=== PATIENT | male | born 1980 | race Caucasian/White ===

== ENCOUNTER 2017-04-21 17:52 | Emergency (ER) | payer OTHER ==
[2017-04-21 18:09] VITALS: RESP 18
[2017-04-21 18:12] VITALS: BMI 36.6
[2017-04-21 18:51] LABS: RBC URINE < 1 /hpf (0-3); TRANSITIONAL EPITHIAL < 1 /hpf (0-3); URINE BACTERIA RARE (<OCC); URINE BILIRUBIN NEGATIVE (NEGATIVE); URINE BLOOD NEGATIVE (NEGATIVE); URINE COLOR Yellow (YELLOW); URINE GLUCOSE (UA) NORMAL (Normal); URINE KETONE NEGATIVE (NEGATIVE); URINE LEUKOCYTE ESTERASE NEG Leu/uL (Negative); URINE PROTEIN NEGATIVE (NEGATIVE); WBC URINE 1 /hpf (0-5)
[2017-04-21] MEDS ORDERED: Sodium Chloride 0.9% 1,000 ML IV ONE (19:33)
--- NOTE | 2017-04-21 19:33 | C.PDOC ---
History Of Present Illness 36 y/o male presents to the ED for evaluation of sore throat and fever which began around 2 days ago. Patient reports TM of 101 and generalized malaise. Denies sick contacts. SORE THROAT, FEVER X 2 DAYS. TM 101. GEN MALAISE. NO SICK CONTACTS EXAM MILD DIST NONTOXIC HEENT +PHARYNGITIS W EXUDATE, MIN SWELLING UVULA MIDLINE VOICE WNL REMAINDER NEG Time Seen by Provider: 04/21/17 18:08 Chief Complaint (Nursing): Fever History Per: Patient History/Exam Limitations: no limitations Onset/Duration Of Symptoms: Days (2) Current Symptoms Are (Timing): Still Present Sick Contacts (Context): None Associated Symptoms: Fever, Sore Throat Ear Symptoms: Bilateral: None Additional History Per: Patient Past Medical History Reviewed: Historical Data, Nursing Documentation, Vital Signs Vital Signs: Last Vital Signs Temp 99.3 F 04/21/17 18:08 Pulse 111 H 04/21/17 18:08 Resp 18 04/21/17 18:08 BP 162/100 H 04/21/17 18:08 Pulse Ox 97 04/21/17 20:34 - Medical History PMH: HTN, Hyperthyroidism, Hypothyroidism, Seizures (last seizure 1 yr ago) Surgical History: No Surg Hx Family History: States: Unknown Family Hx - Social History Hx Tobacco Use: Yes (smoke cessation counseling provided) Hx Alcohol Use: Yes Hx Substance Use: Yes (marijuana) - Immunization History Hx Tetanus Toxoid Vaccination: No Hx Influenza Vaccination: No Hx Pneumococcal Vaccination: No Review Of Systems Constitutional: Positive for: Fever, Malaise (generalized ) ENT: Positive for: Throat Pain Physical Exam - Physical Exam Appears: Non-toxic, Other (mild distress ) Skin: Normal Color, Warm Head: Atraumatic, Normacephalic Eye(s): bilateral: Normal Inspection Ear(s): Bilateral: Normal Nose: Normal, No Discharge Oral Mucosa: Moist Throat: Exudate, Other (pharyngitis. minimal swelling. uvula at midline. voice within normal limits ) Neck: Supple Chest: Symmetrical, No Deformity, No Tenderness Cardiovascular: Rhythm Regular, No Murmur Respiratory: Normal Breath Sounds, No Rales, No Rhonchi, No Wheezing Extremity: Normal ROM, Capillary Refill (less than 2 seconds ) Neurological/Psych: Normal Speech, Normal Cognition Gait: Steady ED Course And Treatment O2 Sat by Pulse Oximetry: 97 (on RA) Pulse Ox Interpretation: Normal Progress Note: labs ordered and reviewed. Patient received Decadron IVP, Toradol IVP, Tylenol PO, Zithromax IV, and IV Fluids. Disposition Counseled Patient/Family Regarding: Studies Performed, Diagnosis, Need For Followup, Rx Given - Disposition Referrals: YOUR,PMD [Other] Disposition: HOME/ ROUTINE Disposition Time: 20:44 Condition: IMPROVED Prescriptions: Acetaminophen [Tylenol Extra Strength] 2 tab PO Q6 #30 tablet Azithromycin 1 tab PO DAILY #4 tab Ibuprofen [Motrin] 600 mg PO Q6 #30 tab Instructions: Pharyngitis (ED) Forms: [employer] (Pashto), Work Excuse - Clinical Impression Clinical Impression: Pharyngitis - Scribe Statement The provider has reviewed the documentation as recorded by the Scribe (Gayla Rachel) Provider Attestation: All medical record entries made by the Scribe were at my direction and personally dictated by me. I have reviewed the chart and agree that the record accurately reflects my personal performance of the history, physical exam, medical decision making, and the department course for this patient. I have also personally directed, reviewed, and agree with the discharge instructions and disposition.
[2017-04-21] MEDS ORDERED: Azithromycin 500 MG in Sodium Chloride 0.9% 250 ML IV STA (19:34)
[2017-04-21] MEDS ORDERED: Sodium Chloride 0.9% 1,000 ML ONE (19:47)
[2017-04-21] MEDS ORDERED: Azithromycin 500mg/250ML NS 500 MG/250 ML BAG IVPB ONE (19:48)
[2017-04-21] MEDS ORDERED: Dexamethasone 4 mg/1 ml ONE (19:55)
[2017-04-21 20:57] VITALS: BP 143/81; PULSE 88; TEMP 98.6; O2SAT 98
== END 2017-04-21 21:11 | disposition home or self-care (01) ==
LOC: C.ER 17:52
DX: J02.9 Acute pharyngitis, unspecified (principal)
CPT/HCPCS: 81001; 87086; 96365; 96375; 99285; J0456; J1100; J1885; J7040; J7050

== ENCOUNTER 2017-05-11 22:26 | Emergency (ER) | payer OTHER ==
[2017-05-11 22:27] VITALS: BMI 36.6
[2017-05-11] MEDS ORDERED: Sodium Chloride 0.9% 1,000 ML IV ONE ×2 (23:24)
[2017-05-11 23:35] LABS: BASO # 0.1 K/uL (0.0-0.2); BASO % 0.4 % (0.0-2.0); EOS # 0.1 K/uL (0.0-0.7); EOS % 0.9 % (0.0-4.0); HEMATOCRIT 42.9 % (35.0-51.0); LYMPH # 1.7 K/uL (1.0-4.3); LYMPH % 11.7 % (20.0-40.0); MEAN CELL VOLUME 76.6 fL (80.0-94.0); MEAN CORPUSCULAR HEMOGLOBIN 25.2 pg (27.0-31.0); MEAN CORPUSCULAR HGB CONC 32.9 g/dL (33.0-37.0); MEAN PLATELET VOLUME 7.8 fL (7.2-11.7); MONO % 7.1 % (0.0-10.0); RED CELL DISTRIBUTION WIDTH 14.8 % (11.5-14.5); WHITE BLOOD COUNT 14.6 K/uL (4.8-10.8)
[2017-05-11 23:42] LABS: CHLORIDE 100 mmol/L (98-107)
[2017-05-11 23:43] LABS: POTASSIUM 3.5 mmol/L (3.6-5.2); SODIUM 137 mmol/L (132-148)
[2017-05-11 23:45] LABS: AST/SGOT 16 U/L (17-59); BILIRUBIN,TOTAL 0.5 mg/dL (0.2-1.3); CARBON DIOXIDE 27 mmol/L (22-30); GFR AFRICAN-AMERICAN > 60; TOTAL PROTEIN 8.5 g/dL (6.3-8.3)
[2017-05-11 23:46] LABS: ALKALINE PHOSPHATASE 94 U/L (38-126); ALT/SGPT 41 U/L (21-72); BLOOD UREA NITROGEN 12 mg/dL (9-20); CALCIUM 8.9 mg/dl (8.6-10.4); GLUCOSE,RANDOM 83 mg/dL (75-110)
[2017-05-11] MEDS ORDERED: Sodium Chloride 0.9% 1,000 ML ONE ×2 (23:50)
--- NOTE | 2017-05-11 23:52 | C.PDOC ---
History Of Present Illness Patient is a 36 y/o male who presents to the ED with complaints of body aches, subjective fever, and sore throat since yesterday. Patient admits to diarrhea and abdominal pain but denies dysuria or hematuria. Patient has no other physical complaints at this time. Chief Complaint (Nursing): Fever History Per: Patient History/Exam Limitations: no limitations Onset/Duration Of Symptoms: Days (symptoms began yesterday ) Current Symptoms Are (Timing): Still Present Associated Symptoms: Sore Throat, Other (body aches) Recent travel outside of the [place]: No Additional History Per: Patient Past Medical History Reviewed: Historical Data, Nursing Documentation, Vital Signs Vital Signs: Last Vital Signs Temp 99.6 F 05/11/17 23:53 Pulse 88 05/12/17 00:14 Resp 20 05/12/17 00:14 BP 145/70 05/12/17 00:14 Pulse Ox 97 05/12/17 00:14 - Medical History PMH: HTN, Hyperthyroidism, Hypothyroidism, Seizures (last seizure 1 yr ago) Surgical History: No Surg Hx Family History: States: Unknown Family Hx - Social History Hx Tobacco Use: Yes (smoke cessation counseling provided) Hx Alcohol Use: Yes Hx Substance Use: Yes (marijuana) - Immunization History Hx Tetanus Toxoid Vaccination: No Hx Influenza Vaccination: No Hx Pneumococcal Vaccination: No Review Of Systems Constitutional: Positive for: Fever (subjective) Cardiovascular: Negative for: Chest Pain Respiratory: Negative for: Shortness of Breath Gastrointestinal: Positive for: Abdominal Pain, Diarrhea. Negative for: Nausea , Vomiting Genitourinary: Negative for: Dysuria, Frequency Physical Exam - Physical Exam Appears: In Acute Distress (mild) Skin: Normal Color, Warm, Diaphoretic Head: Atraumatic, Normacephalic Oral Mucosa: Moist Throat: Erythema, No Exudate Lymphatic: Other (left cervical node enlargement) Chest: Symmetrical Cardiovascular: Rhythm Regular, No Murmur Respiratory: Normal Breath Sounds, No Rales, No Rhonchi, No Wheezing Gastrointestinal/Abdominal: Soft, Tenderness (mild diffuse tenderness) Neurological/Psych: Oriented x3, Normal Speech, Normal Cognition ED Course And Treatment - Laboratory Results Result Diagrams: 05/11/17 23:31 05/11/17 23:31 O2 Sat by Pulse Oximetry: 99 (room air) Pulse Ox Interpretation: Normal Medical Decision Making Medical Decision Making: Plan: CXR, throat culture, rapid strep, mono spot, influenza A/B stat, and UA ordered; Tylenol and IV fluids administered. Disposition Counseled Patient/Family Regarding: Diagnosis - Disposition Referrals: [facility] [Outside] Disposition: HOME/ ROUTINE Disposition Time: 02:03 Condition: STABLE Prescriptions: Azithromycin [Zithromax] 500 mg PO DAILY #7 tablet Instructions: Pharyngitis (ED), Lymphadenopathy (ED) Forms: [employer] (Tajik) - POA Present On Arrival: None - Clinical Impression Clinical Impression: Pharyngitis, Lymph node enlargement - Scribe Statement The provider has reviewed the documentation as recorded by the Scribe Sandra Sparks All medical record entries made by the Scribe were at my direction and personally dictated by me. I have reviewed the chart and agree that the record accurately reflects my personal performance of the history, physical exam, medical decision making, and the department course for this patient. I have also personally directed, reviewed, and agree with the discharge instructions and disposition.
[2017-05-12 00:15] VITALS: RESP 20
[2017-05-12 00:18] LABS: RBC URINE 1 /hpf (0-3); URINE BACTERIA RARE (<OCC); URINE BILIRUBIN NEGATIVE (NEGATIVE); URINE BLOOD NEGATIVE (NEGATIVE); URINE COLOR Yellow (YELLOW); URINE GLUCOSE (UA) NORMAL (Normal); URINE KETONE NEGATIVE (NEGATIVE); URINE LEUKOCYTE ESTERASE NEG Leu/uL (Negative); URINE PROTEIN 1+ mg/dL (NEGATIVE); WBC URINE 1 /hpf (0-5)
[2017-05-12] MEDS ORDERED: Sodium Chloride 0.9% 1,000 ML ONE (00:47)
[2017-05-12] MEDS ORDERED: Azithromycin 500mg/250ML NS 250 ML IV STA (02:02)
[2017-05-12] MEDS ORDERED: Azithromycin 500mg/250ML NS 500 MG/250 ML BAG IVPB STA (02:16)
[2017-05-12] MEDS ORDERED: Azithromycin 500mg/250ML NS 500 MG/250 ML BAG IVPB ONE (02:22)
[2017-05-12 06:27] VITALS: BP 142/87; PULSE 102; TEMP 98.8; O2SAT 100
--- NOTE | 2017-05-12 08:47 | RAD ---
HISTORY: Shortness of breath COMPARISON: No prior. TECHNIQUE: Chest PA and lateral FINDINGS: LUNGS: Mild venous congestion. Right hilar prominence. Productive change at the end of the 1st left rib. PLEURA: No significant pleural effusion identified. No pneumothorax apparent. CARDIOVASCULAR: Normal. OSSEOUS STRUCTURES: No significant abnormalities. VISUALIZED UPPER ABDOMEN: Normal. OTHER FINDINGS: None. IMPRESSION: Mild venous congestion. Right hilar prominence. Productive change at the end of the 1st left rib.
== END 2017-05-12 04:15 | disposition home or self-care (01) ==
LOC: C.ER 22:26
DX: J02.9 Acute pharyngitis, unspecified (principal); R59.9 Enlarged lymph nodes, unspecified
CPT/HCPCS: 71020; 80053; 81001; 85025; 86308; 87070; 87430; 87804; 96361; 96374; 96375; 99285; J0456; J2405; J7040